=== PATIENT | male | born 1980 ===

== ENCOUNTER 2016-11-22 12:53 | Day surgery (SDC) | payer BC ==
--- NOTE | 2016-11-22 08:13 | History and Physical Report ---
DATE OF EVALUATION: 11/22/2016. CHIEF COMPLAINT AND HISTORY OF CHIEF COMPLAINT: This patient presents with a history of a postlaminectomy radiculitis. He recently had a spinal cord stimulator trial conducted with 75 to 90% pain control. Due to the failure of all therapies, he presents today for permanent implantation. PAST MEDICAL HISTORY: Blood-borne disease. REVIEW OF SYSTEMS: The patient is appropriate and in no acute distress. The remainder of the systems review shows headaches, difficulty sleeping. SOCIAL HISTORY: Social alcohol, caffeine. FAMILY HISTORY: Diabetes, coronary artery disease, cancer. PAST SURGICAL HISTORY: Lumbar spinal surgery. MEDICATIONS ON ADMISSION: To be provided. PHYSICAL EXAMINATION: General: Height is 5 feet, 8 inches. Weight is 160 pounds. Vital Signs: Unavailable. HEENT: Within normal limits. Lungs: Clear. Heart: Regular rate and rhythm. Abdomen: Nontender. Musculoskeletal: Examination of the musculoskeletal system shows diffuse tenderness in the lumbar spine and adjacent laminectomy scar. Range of motion produces pain into the left leg and partially the right across a 5-1 and even a 4-5 pattern. Ambulation: No assistive device utilized but antalgic. Although an assistive device is used periodically when necessary. Sensory hammonds are intact. Neurologic: Cranial nerves are intact. IMPRESSIONS: 1. POSTLUMBAR LAMINECTOMY SYNDROME, ICD10 CODE M96.1. 2. LUMBAR RADICULITIS, ICD10 CODE M54.16 AND M54.17. PLANS: The patient is here after a successful stimulator trial for implantation of a permanent system. All of the potential risks, side effects, and complications have been carefully reviewed including spinal cord injury and nerve root injury. He also understands that should the initial part of the permanent implant fail to produce the appropriate stimulation pattern, then no permanent implant will be performed. The procedure will be considered outpatient, although an overnight stay will be evaluated. John Sheppard D.O. Date Time JOB NUMBER: [id number] cc: Burak Mora
[~2016-11-22 12:53] MED LIST: ACETAMINOPHEN 1000MG/100 ML PREMIX IV ONE; CEFAZOLIN 2 Gram 50 ML IVPB ONE; FAMOTIDINE 20MG TABLET PO ONE; MECLIZINE 25 MG TABLET PO ONE; METOCLOPRAMIDE 10 MG TABLET PO ONE
[2016-11-22] MEDS ORDERED: PROPOFOL 10 MG/ML VIAL IV ONE (14:00)
[2016-11-22] MEDS ORDERED: FENTANYL PF 100MCG/2ML VIAL IV ONE (14:00)
[2016-11-22] MEDS ORDERED: LIDOCAINE 2% MDV (20MG/ML) 20ML VIAL IV ONE (14:00)
[2016-11-22] MEDS ORDERED: BUPIVACAINE 0.5% W/EPI MPF 30 ML VIAL IVP ONE (14:00)
[2016-11-22] MEDS ORDERED: HYDROMORPHONE HCL 2 MG/ML VIAL IV ONE ×2 (14:00)
[2016-11-22] MEDS ORDERED: *PACU ONLY* KETAMINE HCL 10 MG/ML (20ML) VIAL IV ONE (14:00)
[2016-11-22] MEDS ORDERED: MIDAZOLAM HCL 2MG/2ML VIAL IV ONE (14:00)
[2016-11-22] MEDS ORDERED: CEFAZOLIN 1G VIAL IM ONE (14:00)
[2016-11-22] MEDS ORDERED: LIDOCAINE 1% W/EPI 1:200,000 MPF 30ML SQ ONE (14:00)
[2016-11-22] MEDS ORDERED: HYDROMORPHONE HCL 1 MG/ML CPJ IM PRN (16:18)
[2016-11-22] MEDS ORDERED: METOCLOPRAMIDE HCL 10 MG/2 ML VIAL IVP PRN (16:18)
[2016-11-22] MEDS ORDERED: HYDROMORPHONE HCL 2 MG/ML VIAL IM PRN (16:18)
[2016-11-22] MEDS ORDERED: TEMAZEPAM 15 MG CAPSULE PO PRN ×2 (16:18)
[2016-11-22] MEDS ORDERED: OXYCODONE/APAP 10MG-325MG TABLET PO PRN (16:18)
[2016-11-22] MEDS ORDERED: ACETAMINOPHEN 325 MG TAB PO PRN ×2 (16:18)
[2016-11-22] MEDS ORDERED: DIPHENHYDRAMINE HCL IV 50 MG/ML VIAL IVP PRN ×2 (16:18)
[2016-11-22] MEDS ORDERED: HYDROCODONE/APAP 7.5/325MG TABLET PO PRN ×2 (16:18)
[2016-11-22] MEDS ORDERED: SENNOSIDES/DOCUSATE SODIUM UD CAPSULE PO PRN ×2 (16:18)
[2016-11-22] MEDS ORDERED: DIPHENHYDRAMINE HCL 25 MG CAPSULE PO PRN (16:18)
[2016-11-22] MEDS ORDERED: AL HYDROX/MAG HYDROX 30ML UD PO PRN (16:18)
[2016-11-22] MEDS ORDERED: METOCLOPRAMIDE 10 MG TABLET PO PRN (16:18)
[2016-11-22] MEDS: ALPRAZOLAM 1 MG TAB PO PRN (21:16)
[2016-11-22] MEDS: 0.9 % SODIUM CHLORIDE 10ML SYR IVP SCH (21:16)
[2016-11-22] MEDS: DIPHENHYDRAMINE HCL 25 MG CAPSULE PO PRN (23:52)
[2016-11-22] MEDS: OXYCODONE/APAP 10MG-325MG TABLET PO PRN (23:53)
[2016-11-22] MEDS: CEFAZOLIN 2 Gram 50 ML IVPB SCH (23:56)
[2016-11-23] MEDS: OXYCODONE/APAP 10MG-325MG TABLET PO PRN ×2 (08:10→14:35)
[2016-11-23] MEDS: DIPHENHYDRAMINE HCL 25 MG CAPSULE PO PRN (08:56)
[2016-11-23] MEDS: ALPRAZOLAM 1 MG TAB PO PRN ×2 (08:57→15:21)
[2016-11-23] MEDS: CEFAZOLIN 2 Gram 50 ML IVPB SCH (08:58)
[2016-11-23] MEDS: 0.9 % SODIUM CHLORIDE 10ML SYR IVP SCH (11:10)
--- NOTE | 2016-11-28 14:27 | RADIOLOGY REPORT ---
EXAM: THORACOLUMBAR SPINE HISTORY: SPINAL CORD STIMULATOR IMPLANT. TECHNIQUE: A single AP view of the thoracolumbar spine was obtained. Comparison: None. FINDINGS: Battery pack right lower quadrant. Associated wires extend up to the body of what is presumed to be T8 superiorly. Skin type rosette overlying the L1-L2 vertebra and adjacent to the battery pack right lower quadrant. IMPRESSION: WIRES EXTEND UP TO THE LEVEL OF THE SUPERIOR ASPECT OF THE BODY OF T8. JOB NUMBER: [id number] MTDD
--- NOTE | 2016-11-29 16:58 | Operative Note ---
DATE OF SURGERY: 11/22/2016 PREOPERATIVE DIAGNOSES: 1. Post lumbar laminectomy syndrome, ICD10 code M96.1. 2. Lumbar radiculitis, ICD10 code M54.16, M54.17. OPERATION: 1. Fluoroscopic-guided epidural access right T12-L1, placement of spinal cord stimulator lead 1, a [employer] Infinion 16, 6 electrodes positioned left T2. 2. Complex programming of lead 1, 20 minutes. 3. Fluoroscopic-guided epidural access right T11-12, placement of spinal cord stimulator lead 2, a [employer] Infinion 16, 6 electrodes positioned right T8. 4. Complex programming of lead 2, 20 minutes. 5. Incision, subdissection, and anchoring lead 1 and lead 2 to deep fascia using anchor to [employer] locking anchor and nonabsorbable suture. 6. Incision, subdissection, and creation of subcutaneous pouch at right posterior-superior gluteal margin for placement of generator identified as [employer] programmable and chargeable. 7. Tunneling between pouches, placement of external lead 1 and lead 2 into generator pouch, each lead interfaced with bifurcate extension, each bifurcate extension interfaced with generator. 8. Placement of generator pouch securing the posterior fascia using nonabsorbable suture placed for leads in the pouch, closure of incision with Vicryl for fascia and rosette for skin. Dressings placed. 9. Complex recovery programming internal generator home use, recovery room, 20 minutes. Surgeon: John Sheppard DO Anesthesia: Local sedation. Anesthesia Provider: Roney Nolasco Indication: The patient presents with a history of intractable lumbar radiculitis post laminectomy in nature. Due to the failure of therapy and stimulator trials conducted with 75% to 90% pain control, due to the failure of all therapies and success with stimulator trial, the patient presents today for implantation of a permanent system. PROCEDURE: Intravenous line, vital sign monitoring, IV sedation. Prepped, draped, sterile technique, guided imaging. The epidural space right of the midline of 12-1, 11-12 inferior 2 separate epidural needles with loss of resistance near the space. At 12-1, spinal cord stimulator lead 1, a [employer] Infinion 16, 6 electrodes was positioned left of midline T8. Epidural access at T11-12 same technique. Spinal cord stimulator lead 2. A [employer] Infinion 16, 6 electrodes positioned right of the midline T8. Complex programming of lead 1 over 20 minutes followed by complex programming of lead 2 over 20 minutes resulting in pattern stimulation across the back and into the legs. The patient indicating we are in all the right areas of pain. He was given the option to implant the system or continue to program. He opted to implant the system. Question was repeated with the same response. The skin above and below the needles was infiltrated. Incision was made and subcutaneous dissection was conducted to the supraspinous fascia. [place] removed and each lead was anchored to the supraspinous fascia using a [employer] locking anchor. At the right posterior-superior gluteal margin, a site picked by the patient for the generator, skin incision made and subdissection was conducted to form a generator pouch of suitable size for the internal generator. Antibiotic irrigation and Bovie for hemostasis. A tunneling tool was then used to carry the leads into the generator pouch, and each lead was interfaced with the bifurcate extension. Each bifurcate extension interfaced with the generator. Antibiotic irrigation and Bovie for hemostasis. The generator placed on the pouch and secured to the fascia with nonabsorbable suture. The incisions were then closed with Vicryl for fascia and rosette for skin. Dressings placed. He was transported to the recovery room stable, showing no side effects from the procedure or sedation. In the recovery room, complex programming was performed of the generator over 20 minutes, reestablishing stimulation. Because of the time of day, he will be kept overnight and discharged in the morning. DISCHARGE INSTRUCTIONS: 1. The sites will remain clean and dry. No showering or bathing in any way until he returns to the office in 5-7 days. The office will contact the patient at home to schedule the appointment. 2. Standard medications resumed including antibiotic Levaquin 500 mg once a day for 14 days. 3. Other medications resumed as directed and indicated. 4. All other instructions were provided with numbers to contact if problems given. He should keep his activities low, limiting bend, lift, push, pull until he is seen in the office in 5-7 days. Minimum activity levels. Diet is unchanged. John Sheppard DO CC: Guillermo Fontenot MD [facility]Cookie
== END 2016-11-23 15:50 | disposition home or self-care (01) ==
LOC: SUR 12:53 → MEDSURG 18:57 → SUR 11-23 15:50
PROVIDERS: ATTEND Pain Medicine Interventional Pain Medicine
DX: M96.1 Postlaminectomy syndrome, not elsewhere classified (principal); M54.16 Radiculopathy, lumbar region; M54.17 Radiculopathy, lumbosacral region; B20 Human immunodeficiency virus [HIV] disease
CPT/HCPCS: 72020; 95972; J0690; J1170

== ENCOUNTER → 2018-01-09 | Day surgery (SDC) | payer MEDICAID ==
[~2018-01-09] MED LIST changes: +ACETAMINOPHEN 1,000 MG/100 ML BTL IV ONE; -ACETAMINOPHEN 1000MG/100 ML PREMIX IV ONE; +BUPIVACAINE 0.5% W/EPI MPF 30 ML VIAL IVP ONE; +CEFAZOLIN 1G VIAL IM ONE; +CEFAZOLIN 2 Gram 2 GM/50 ML BAG IVPB ONE; -CEFAZOLIN 2 Gram 50 ML IVPB ONE; +FENTANYL PF 100MCG/2ML VIAL IV ONE; +LIDOCAINE 1% W/EPI 1:200,000 MPF 30ML SQ ONE; +LIDOCAINE 2% MDV (20MG/ML) 20ML VIAL IV ONE; +MIDAZOLAM HCL 2MG/2ML VIAL IV ONE; +OXYCODONE/APAP 10MG-325MG TABLET PO ONE; +PROPOFOL 10 MG/ML VIAL IV ONE
--- NOTE | 2018-01-09 06:26 | History and Physical Report ---
DATE: 01/09/2018. CHIEF COMPLAINT AND HISTORY OF CHIEF COMPLAINT: This patient presents with a long history of a postlaminectomy radiculitis. He is here after an implanted spinal cord stimulator with significant relief. However, due to medical problems and illnesses he is here for removal by his request. Date of implant was 11/22/2016. PAST MEDICAL HISTORY: Bloodborne disease. PAST SURGICAL HISTORY: Lumbar spinal surgery, spinal cord stimulator implant. MEDICATIONS ON ADMISSION: To be provided. ALLERGIES: To be provided. SOCIAL HISTORY: Social alcohol, caffeine. FAMILY HISTORY: Diabetes, coronary artery disease, hypertension, cancer. REVIEW OF SYSTEMS: The patient is appropriate and does not appear to be in any acute distress. The remainder of the systems review shows headaches, difficulty sleeping. PHYSICAL EXAMINATION: General: Height and weight are unknown. Weight: Unknown. Vital Signs: Not available. HEENT: Within normal limits. Lungs: Clear. Heart: Regular rate and rhythm. Abdomen: Nontender. Musculoskeletal: Examination of the musculoskeletal system shows the incision line for the leads at approximately T12-L1. The generator is in the right posterior gluteal margin. All of the incisions are intact. Sensory hammonds are intact. Underlying pain pattern is in the low back with a bilateral, left greater than right, lower extremity extension. Neurologic: Cranial nerves are intact. IMPRESSION: 1. POSTLUMBAR LAMINECTOMY SYNDROME, ICD-10 CODE M96.1. 2. LUMBAR RADICULOPATHY, ICD-10 CODE M54.16 AND M54.17. 3. IMPLANTED SPINAL CORD STIMULATOR WITH GENERATOR. PLAN: The patient is here for removal of the system because of medical illness at his request. The procedure will be considered outpatient, although an overnight stay will be evaluated. JOB NUMBER: [id number] cc: Burak Mora
--- NOTE | 2018-01-09 20:48 | Operative Note - [place] ---
DATE OF SURGERY: 01/09/18 PREOPERATIVE DIAGNOSES: 1. POST LUMBAR LAMINECTOMY SYNDROME, ICD-10 CODE = M96.1. 2. LUMBAR RADICULOPATHY, ICD-10 CODE = M54.16 AND M54.17. 3. SPINAL CORD STIMULATOR INTERNAL GENERATOR, NONFUNCTIONAL. SURGERY: 1. INCISION, SUBCUTANEOUS DISSECTION, AND REMOVAL OF TWO SPINAL CORD STIMULATOR LEADS IMPLANTED. 2. INCISION, SUBCUTANEOUS DISSECTION, AND REMOVAL OF INTERNAL PULSE GENERATOR IMPLANTED WITH EXTENSIONS. SURGEON: JUSTIN ELI D.O. ANESTHESIA: LOCAL SEDATION. ANESTHESIA PROVIDER: SURI BURK CRNA INDICATION: This patient with a postlaminectomy radiculopathy had a spinal cord stimulator implanted a number of years previous and although initial success was quite high, over a period of time this patient lost stimulation and when given the option to revise or remove, he opted to remove. SURGERY: Intravenous line, vital sign monitoring, IV sedation, prepped and draped with sterile technique. Under imaging, the midline incision at T12-L1 for the lead placement was infiltrated with local, incision made and subcutaneous dissection was conducted to the leads, anchor, and suture. The suture removed and then locking anchors were removed intact. The two stimulators with 16 electrodes each accounted for and removed intact. At the right posterior gluteal margin generator pouch, skin infiltrated, incision made and subcutaneous dissection was conducted to the generator pouch. The generator was then exteriorized and removed along with its extensions. Antibiotic irrigation and Bovie for hemostasis at both sites. The incisions were then closed both with Vicryl for fascia and a running subcuticular Vicryl for skin and a Dermabond closure to approximate the edges of the wound. He was transported to the Recovery Room stable with no side-effects from the procedure or the sedation. DISCHARGE INSTRUCTIONS: 1. The incisions will remain clean and dry. The Dermabond is water impermeable , so he can shower in 24 hours. He should not sit in water but shower is okay. The dressings and the Dermabond should stay intact. If it comes off or peels, he should contact the office. 2. Standard medications resumed including Levaquin, the antibiotic, 500 mg once a day for 14 days. 3. Office will contact the patient at home to set up an appointment in 7-10 days to evaluate the sites. Until then, his activities should stay controlled, limiting bend, lift, push, pull. All other instructions provided, numbers to contact with problems given. He will be discharged. cc: Dr. Guillermo Fontenot JOB NUMBER: [id number] MTDD
== END | disposition home or self-care (01) ==
LOC: SUR 08:05
PROVIDERS: ATTEND Pain Medicine Interventional Pain Medicine
DX: M96.1 Postlaminectomy syndrome, not elsewhere classified (principal); M54.16 Radiculopathy, lumbar region; M54.17 Radiculopathy, lumbosacral region; B20 Human immunodeficiency virus [HIV] disease
CPT/HCPCS: 63688; 63661; 00300; J3010; J0690